=== PATIENT | female | born 1960 | race Caucasian/White ===

== ENCOUNTER 2016-11-02 12:02 | Emergency (ER) | payer OTHER ==
[~2016-11-02] VITALS: Ht 162.6 cm; Wt 55.3 kg
[~2016-11-02 12:02] MED LIST: ALBU0.08 INH; ALBU1AER9 INH; LISI-729 PO; LORA-741 PO; MOME200A INH; MONT1TAB3 PO; ONDA8TAB7 PO; OXGN; PANT40TA PO; SPRIN/30 INH
[2016-11-02 12:14] VITALS: TEMP 37; Ht 162.6 cm; Wt 55.3 kg
[2016-11-02] MEDS ORDERED: SODIUM CHLORIDE 0.9% 1000ML 1,000 ML IV STA (12:56)
[2016-11-02] MEDS ORDERED: ONDANSETRON INJ 2 MG/ML 2 ML VIAL IV STA (12:56)
[2016-11-02 13:08] LABS: BASO % 0.6 %; BASO ABS # 0.04 K/uL (0-0.2); COMPLETE YES; EOS % 2.7 %; HEMATOCRIT 47.2 % (37-47); IG% 0.2 %; LYMPH % 16.3 %; LYMPH ABS # 1.08 K/uL (1.2-3.4); MEAN CELL VOLUME 90.9 fL (80-100); MEAN CORPUSCULAR HEMOGLOBIN 32.2 pg (25-34); MEAN CORPUSCULAR HGB CONC 35.4 g/dl (32-36); MEAN PLATELET VOLUME 9.6 fL (7.4-10.4); MONO % 13.6 %; NEUT % 66.6 %; PLATELET COUNT 266 K/uL (130-400); RED BLOOD COUNT 5.19 M/uL (4.2-5.4); WHITE BLOOD COUNT 6.62 K/uL (4.8-10.8)
--- NOTE | 2016-11-02 13:26 | EMERGENCY ROOM VISIT NOTE ---
History First contact with patient: 12:47 Chief Complaint: DEHYDRATION Stated Complaint: NEED IV- REFERRED BY DR Parisi Triage Summary: patient has been vomiting and nauseous for three days. went to PCP and was sent to ER for dehydration/ patient has been keeping small amounts of fluids down and still unable to eat much History of Present Illness The patient is a 55 year old female who presents to the Emergency Room with complaints of dehydration. The patient has had nausea, vomiting and diarrhea for 3 days. She states that her symptoms started on Saturday. The patient states that the vomiting has stopped. She states that the diarrhea is much better. She states that she still feels weak and dehydrated. She saw her family doctor today and was referred to the emergency department for IV fluids. The patient reports epigastric pain and rates her discomfort 2/10. She states that her grandchildren developed the same symptoms today. She denies any chest pain or trouble breathing. She denies any fevers. She denies urinary symptoms. Review of Systems A 10 system review of systems was completed with positives and pertinent negatives listed in the HPI. Past Medical/Surgical History Medical Problems: (1) ASTHMA, UNSPECIFIED, W (ACUTE) EXACERBATION (2) CHRONIC OBSTRUCTIVE ASTHMA, NOS Family History Diabetes mellitus FH: cancer FH: heart disease FH: lung disease Social History Smoking Status: Current Every Day Smoker Alcohol Use: occasionally Drug Use: none Marital Status: single Housing Status: lives alone Occupation Status: disabled Current/Historical Medications Scheduled Albuterol Sulfate (Proair Respiclick), 2 PUFF INH Q4H Home O2 Therapy (Oxygen), 2 LITERS NA HS Ipratropium-Albuterol (Duoneb), 1 TREATMENT INH Q4H Lisinopril (Zestril), 5 MG PO HS Mometasone Furoate-Formoterol (Dulera 200/5 Mcg), 1 PUFF INH BID Montelukast Sodium (Singulair), 10 MG PO HS Ondasetron Odt (Zofran Odt), 4 MG SL Q6H Pantoprazole (Protonix), 40 MG PO QAM Tiotropium [place] (Spiriva Handihaler), 1 CAP INH DAILY AFTERNOON Scheduled PRN Lorazepam (Ativan), 0.5 MG PO DAILY PRN for Anxiety Physical Exam Vital Signs Date Time Temp Pulse Resp B/P (MAP) Pulse Ox O2 Delivery O2 Flow Rate FiO2 11/02/16 14:54 68 15 141/79 96 11/02/16 12:40 110 20 151/91 96 Room Air 11/02/16 12:36 99 20 145/92 96 103 152/88 110 151/91 11/02/16 12:14 37.0 116 18 151/88 95 Room Air Physical Exam VITALS: Vitals are noted on the nurse's note and reviewed by myself. Vital signs stable. GENERAL: This is a 55-year-old female, in no acute distress, nondiaphoretic, well-developed well-nourished. SKIN: The skin was without rashes, erythema, edema, or bruising. There is no tenting of the skin. Capillary reflex less than 2 seconds. HEAD: Normocephalic atraumatic. EARS: The external ears are normal in appearance. EYES: Pupils equal round and reactive to light and accommodation. Conjunctivae without injection, sclerae without icterus. Extraocular movements intact. NOSE: Patent, turbinates without inflammation or discharge. No sinus tenderness. MOUTH: Mucous membranes moist. Tonsils are not enlarged. Pharynx without erythema or exudate. Uvula midline. Airway patent. Tongue does not deviate. NECK: Supple without nuchal rigidity. No JVD. HEART: Regular rate and rhythm without murmurs gallops or rubs. LUNGS: Clear to auscultation bilaterally without wheezes, rales or rhonchi. No retractions or accessory muscle use. ABDOMEN: Positive bowel sounds x 4. Soft, minimal epigastric tenderness, without masses or organomegaly. Cohen sign negative. MUSCULOSKELETAL: No muscle atrophy, erythema, or edema noted. Full range of motion in all extremities. No tenderness to palpation. Normal gait. Strength 5/5 throughout. NEURO: Patient was alert and oriented to person place and time. No focal neurological deficits. Medical Decision & Procedures Laboratory Results 11/02/16 12:45 Red Blood Count 5.19, Mean Corpuscular Volume 90.9, Mean Corpuscular Hemoglobin 32.2, Mean Corpuscular Hemoglobin Concent 35.4, Mean Platelet Volume 9.6, Neutrophils (%) (Auto) 66.6, Lymphocytes (%) (Auto) 16.3, Monocytes (%) (Auto) 13.6, Eosinophils (%) (Auto) 2.7, Basophils (%) (Auto) 0.6, Neutrophils # (Auto ) 4.41, Lymphocytes # (Auto) 1.08, Monocytes # (Auto) 0.90, Eosinophils # (Auto ) 0.18, Basophils # (Auto) 0.04 11/02/16 12:45 Test 11/02/16 12:45 11/02/16 13:20 White Blood Count 6.62 K/uL (4.8-10.8) Red Blood Count 5.19 M/uL (4.2-5.4) Hemoglobin 16.7 g/dL (12.0-16.0) Hematocrit 47.2 % (37-47) Mean Corpuscular Volume 90.9 fL (80-100) Mean Corpuscular Hemoglobin 32.2 pg (25-34) Mean Corpuscular Hemoglobin Concent 35.4 g/dl (32-36) Platelet Count 266 K/uL (130-400) Mean Platelet Volume 9.6 fL (7.4-10.4) Neutrophils (%) (Auto) 66.6 % Lymphocytes (%) (Auto) 16.3 % Monocytes (%) (Auto) 13.6 % Eosinophils (%) (Auto) 2.7 % Basophils (%) (Auto) 0.6 % Neutrophils # (Auto) 4.41 K/uL (1.4-6.5) Lymphocytes # (Auto) 1.08 K/uL (1.2-3.4) Monocytes # (Auto) 0.90 K/uL (0.11-0.59) Eosinophils # (Auto) 0.18 K/uL (0-0.5) Basophils # (Auto) 0.04 K/uL (0-0.2) RDW Standard Deviation 47.1 fL (36.4-46.3) RDW Coefficient of Variation 14.1 % (11.5-14.5) Immature Granulocyte % (Auto) 0.2 % Immature Granulocyte # (Auto) 0.01 K/uL (0.00-0.02) Anion Gap 5.0 mmol/L (3-11) Est Creatinine Clear Calc Drug Dose 78.1 ml/min Estimated GFR () 110.8 Estimated GFR (Non- 95.6 BUN/Creatinine Ratio 2.7 (10-20) Calcium Level 8.7 mg/dl (8.5-10.1) Magnesium Level 1.9 mg/dl (1.8-2.4) Total Bilirubin 0.3 mg/dl (0.2-1) Aspartate Amino Transf (AST/SGOT) 101 U/L (15-37) Alanine Aminotransferase (ALT/SGPT) 69 U/L (12-78) Alkaline Phosphatase 118 U/L (45-117) Total Creatine Kinase 77 U/L (26-192) Total Protein 6.9 gm/dl (6.4-8.2) Albumin 3.2 gm/dl (3.4-5.0) Globulin 3.7 gm/dl (2.5-4.0) Albumin/Globulin Ratio 0.9 (0.9-2) Lipase 137 U/L (73-393) Urine Color YELLOW Urine Appearance CLEAR (CLEAR) Urine pH 5.5 (4.5-7.5) Urine Specific [place] 1.010 (1.000-1.030) Urine Protein NEG (NEG) Urine Glucose (UA) NEG (NEG) Urine Ketones NEG (NEG) Urine Occult Blood NEG (NEG) Urine Nitrite NEG (NEG) Urine Bilirubin NEG (NEG) Urine Urobilinogen NEG (NEG) Urine Leukocyte Esterase NEG (NEG) Medications Administered Medications (Trade) Dose Ordered Sig/[place] Route Start Time Stop Time Status Last Admin Dose Admin Sodium Chloride 1,000 ml @ 999 mls/hr Q1H1M STAT IV 11/02/16 12:56 11/02/16 13:56 DC 11/02/16 13:00 999 MLS/HR Ondansetron HCl (Zofran Inj) 4 mg NOW STAT IV 11/02/16 12:56 11/02/16 12:58 DC 11/02/16 13:23 4 MG ED Course The patient was seen and examined. Previous visits were reviewed. The patient does not have a fever or leukocytosis. She does not have any significant electrolyte abnormality. Lipase is not elevated. Urinalysis was negative. The patient was hydrated with 1 L of normal saline solution She was given 4 mg IV Zofran The patient states that she was feeling significantly improved after the above treatment The patient presents with resolving nausea, vomiting and diarrhea. The patient' s symptoms are consistent with a viral gastroenteritis. Her grandchildren also developed the same symptoms. She does not have any significant abdominal tenderness on examination. She does have some mild epigastric discomfort that is worse with movement and may be related to the straining with emesis. The patient will be given a small prescription for Zofran. She should return to the ER immediately if any worsening symptoms. Otherwise, she should recheck with her family doctor next week if she is not improving The patient was also seen and examined by Dr. Rivas who agrees with the assessment and treatment plan. Medical Decision DIFFERENTIAL DIAGNOSIS: Hepatitis, cholecystitis, cholangitis, biliary colic, pancreatitis, pneumonia, subdiaphragmatic abscess, appendicitis, inguinal hernia , nephrolithiasis, inflammatory bowel disease, mesenteric adenitis, peptic ulcer disease, GERD, gastritis, pancreatitis, myocardial infarction, pericarditis, ruptured aortic aneurysm, appendicitis, gastroenteritis, bowel obstruction, splenic infarct, diverticulitis, mesenteric ischemia, metabolic, peritonitis, among others. Medication Reconcilliation Current Medication List: was personally reviewed by me Blood Pressure Screening Patient's blood pressure: Elevated blood pressure Blood pressure disposition: Elevated BP felt to be situational Impression Primary Impression: Nausea vomiting and diarrhea Departure Information Dispostion Home / Self-Care Condition GOOD Prescriptions Ondasetron Odt (ZOFRAN ODT) 4 Mg Tab 4 MG SL Q6H for Nausea, #10 TAB Prov: Malika Lobo PA-C 11/02/16 Referrals Gurmeet Ng M.D. (PCP) Patient Instructions ED Food Poison Or Gastroenteritis, [facility] Additional Instructions Zofran as prescribed, as needed for nausea Return if any worsening abdominal pain, fevers Recheck with your family doctor next week if symptoms have not resolved
[2016-11-02 13:29] LABS: BUN/CREATININE RATIO 2.7 (10-20); CALCIUM 8.7 mg/dl (8.5-10.1); CREATININE 0.72 mg/dl (0.60-1.20); MAGNESIUM 1.9 mg/dl (1.8-2.4); POTASSIUM 3.4 mmol/L (3.5-5.1)
[2016-11-02 13:32] LABS: ALB/GLOB RATIO 0.9 (0.9-2)
[2016-11-02 13:37] LABS: URINE APPEARANCE CLEAR (CLEAR); URINE BILIRUBIN NEG (NEG); URINE COLOR YELLOW; URINE NITRITE NEG (NEG); URINE PH 5.5 (4.5-7.5); UROBILINOGEN NEG (NEG); ZZUR CULT IF INDIC CLEAN CATCH NO
[2016-11-02 13:39] LABS: MANUAL MICROSCOPIC REQUIRED? NO; REVIEW REQ? NO
[2016-11-02] MEDS ORDERED: IPRASOL4 INH (13:44)
[2016-11-02] MEDS ORDERED: ALBU18002 INH (13:44)
[2016-11-02] MEDS ORDERED: ONDA4TAB10 SL (14:13)
--- NOTE | 2016-11-02 14:36 | EMERGENCY ROOM VISIT NOTE ---
ED Visit Note First contact with patient: 12:47 Staff note: I have reviewed the Patients chart and have discussed this case with my PA. I generally agree with the ED note and findings.
[2016-11-02 14:54] VITALS: BP 141/79; PULSE 68; O2SAT 96
== END 2016-11-02 14:50 | disposition home or self-care (01) ==
LOC: C.EDB 12:02 → C.EDC 14:50
DX: R11.2 Nausea with vomiting, unspecified (principal); R19.7 Diarrhea, unspecified; R10.13 Epigastric pain; J45.909 Unspecified asthma, uncomplicated; J44.9 Chronic obstructive pulmonary disease, unspecified; F17.200 Nicotine dependence, unspecified, uncomplicated; Z99.81 Dependence on supplemental oxygen; Z83.3 Family history of diabetes mellitus

== ENCOUNTER 2017-04-23 01:09 | Emergency (ER) | payer OTHER ==
[~2017-04-23] VITALS: Ht 162.6 cm; Wt 55.9 kg
[~2017-04-23 01:09] MED LIST changes: -ALBU0.08 INH; +ALBU18002 INH; -ALBU1AER9 INH; +IPRASOL4 INH; +LEVO1TAB33 PO; +ONDA4TAB10 SL; -ONDA8TAB7 PO; +OXYC-609 PO
[2017-04-23 01:19] VITALS: TEMP 36.8; Ht 162.6 cm; Wt 55.9 kg
[2017-04-23 01:20] VITALS: O2SAT 98
[2017-04-23] MEDS ORDERED: ALBUT/IPRATROP 3MG/0.5MG NEB 3 ML VIAL INH STA (01:28)
[2017-04-23] MEDS ORDERED: DEXAMETHASONE **PF** INJ 10 MG/ML VIAL IV ONE (01:30)
[2017-04-23 01:59] LABS: BASO % 0.4 %; BASO ABS # 0.05 K/uL (0-0.2); EOS % 0.3 %; EOS ABS # 0.04 K/uL (0-0.5); HEMATOCRIT 40.6 % (37-47); HEMOGLOBIN 14.7 g/dL (12.0-16.0); IG# 0.03 K/uL (0.00-0.02); LYMPH % 18.6 %; LYMPH ABS # 2.15 K/uL (1.2-3.4); MEAN CELL VOLUME 94.4 fL (80-100); MEAN CORPUSCULAR HEMOGLOBIN 34.2 pg (25-34); MEAN CORPUSCULAR HGB CONC 36.2 g/dl (32-36); MEAN PLATELET VOLUME 8.8 fL (7.4-10.4); MONO % 5.7 %; MONO ABS # 0.66 K/uL (0.11-0.59); NEUT % 74.7 %; NEUT ABS # 8.62 K/uL (1.4-6.5); PLATELET COUNT 299 K/uL (130-400); RED CELL DISTRIBUTION WIDTH CV 12.5 % (11.5-14.5); RED CELL DISTRIBUTION WIDTH SD 43.1 fL (36.4-46.3); WHITE BLOOD COUNT 11.55 K/uL (4.8-10.8)
[2017-04-23 02:18] LABS: ALBUMIN 3.6 gm/dl (3.4-5.0); ALT/SGPT 24 U/L (12-78); AST/SGOT 16 U/L (15-37); BLOOD UREA NITROGEN 5 mg/dl (7-18); CALCIUM 8.9 mg/dl (8.5-10.1); CARBON DIOXIDE 23 mmol/L (21-32); CREATININE 0.68 mg/dl (0.60-1.20); GLUCOSE 125 mg/dl (70-99); POTASSIUM 3.4 mmol/L (3.5-5.1); SODIUM 130 mmol/L (136-145)
[2017-04-23 02:20] LABS: ALKALINE PHOSPHATASE 77 U/L (45-117); TOTAL PROTEIN 7.1 gm/dl (6.4-8.2)
--- NOTE | 2017-04-23 04:03 | EMERGENCY ROOM VISIT NOTE ---
ED Visit Note First contact with patient: 01:20 I saw this patient in conjunction with Tri Gilmore PA-C. I agree with her decision making and treatment plan.
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
[2017-04-23] MEDS ORDERED: PRED50TA PO (05:15)
--- NOTE | 2017-04-23 06:46 | DIAGNOSTIC IMAGING REPORT ---
CHEST ONE VIEW PORTABLE CLINICAL HISTORY: CHEST PAIN dyspnea COMPARISON STUDY: 03/16/2017 FINDINGS: Mild chronic interstitial fibrotic change. No focal infiltrate. Diaphragms smooth. Upper lungs are clear. IMPRESSION: Chronic fibrotic change. No acute process. The above report was generated using voice recognition software. It may contain grammatical, syntax or spelling errors. Electronically signed by: García Walden M.D. 04/23/2017 6:44 AM Dictated Date/Time: 04/23/2017 6:44 AM
[2017-04-23 07:00] VITALS: BP 131/79; PULSE 99; O2SAT 98
== END 2017-04-23 07:01 | disposition home or self-care (01) ==
LOC: EDBD 01:09 → C.EDA 01:13
DX: T59.4X1A Toxic effect of chlorine gas, accidental (unintentional), initial encounter (principal); J68.0 Bronchitis and pneumonitis due to chemicals, gases, fumes and vapors; J45.909 Unspecified asthma, uncomplicated; J44.9 Chronic obstructive pulmonary disease, unspecified; F17.200 Nicotine dependence, unspecified, uncomplicated; Z79.899 Other long term (current) drug therapy; Z83.3 Family history of diabetes mellitus; Z80.9 Family history of malignant neoplasm, unspecified; Z82.49 Family history of ischemic heart disease and other diseases of the circulatory system

== ENCOUNTER 2017-06-29 16:03 | Emergency (ER) | payer OTHER ==
[~2017-06-29] VITALS: Ht 162.6 cm; Wt 53.9 kg
[~2017-06-29 16:03] MED LIST changes: -ONDA4TAB10 SL
[2017-06-29 16:06] VITALS: Ht 162.6 cm; Wt 53.9 kg
[2017-06-29] MEDS ORDERED: ACETAMINOPHEN 500 MG TAB PO STA (16:18)
[2017-06-29] MEDS ORDERED: KETOROLAC TROMETHAMINE 30 MG/ML VIAL IV STA (16:18)
[2017-06-29] MEDS ORDERED: SODIUM CHLORIDE 0.9% 1000ML 1,000 ML IV STA (16:18)
[2017-06-29] MEDS ORDERED: ONDANSETRON INJ 2 MG/ML 2 ML VIAL IV STA (16:18)
[2017-06-29] MEDS ORDERED: FAMOTIDINE 20MG/5ML IV PUSH IV STA (16:18)
--- NOTE | 2017-06-29 16:27 | EMERGENCY ROOM VISIT NOTE ---
History Report prepared by Fabiola: Sharon Santoro Under the Supervision of: Dr. Ryan Leggett M.D. First contact with patient: 16:11 Chief Complaint: ILLNESS Stated Complaint: SICK History of Present Illness The patient is a 56 year old female who presents to the Emergency Room with complaints of vomiting and diarrhea beginning 14 hours prior to arrival. The patient also reports having right upper quadrant/epigastric abdominal pain and the chills, but denies having fevers and urinary symptoms. The patient states that she called her PCP and was referred here. She rates her abdominal pain at a 1-2 out of 10. The patient states that she is unsure if the pain radiates to her back because she has chronic back pain. She states that she does not think that she ate anything unusual other than potato salad she made last night. She reports that she is on Protonix. She also states that she has COPD, but denies a history of diabetes. The patient reports a history of umbilical surgeries, but denies a history of an appendectomy or cholecystectomy. Source of History: patient Onset: 14 hours prior to arrival Position: other (global) Quality: other (vomiting and diarrhea ) Associated Symptoms: + chills, + abdominal pain (right upper quadrant), No fevers, No urinary symptoms Review of Systems See HPI for pertinent positives & negatives. A total of 10 systems reviewed and were otherwise negative. Past Medical & Surgical Medical Problems: (1) ASTHMA, UNSPECIFIED, W (ACUTE) EXACERBATION (2) CHRONIC OBSTRUCTIVE ASTHMA, NOS (3) COPD (chronic obstructive pulmonary disease) Family History Diabetes mellitus FH: cancer FH: heart disease FH: lung disease Social History Smoking Status: Current Every Day Smoker Alcohol Use: occasionally Drug Use: none Marital Status: single Housing Status: lives alone Occupation Status: disabled Current/Historical Medications Scheduled Home O2 Therapy (Oxygen), 2 LITERS NA HS Lisinopril (Zestril), 5 MG PO HS Mometasone Furoate-Formoterol (Dulera 200/5 Mcg), 1 PUFF INH BID Montelukast Sodium (Singulair), 10 MG PO HS Ondasetron Odt (Zofran Odt), 4 MG SL Q6H Pantoprazole (Protonix), 40 MG PO QAM Tiotropium [place] (Spiriva Handihaler), 1 CAP INH DAILY AFTERNOON Scheduled PRN Albuterol Sulfate (Proair Respiclick), 2 PUFF INH Q4H PRN for SOB/Wheezing Ipratropium-Albuterol (Duoneb), 1 TREATMENT INH Q4H PRN for SOB/Wheezing Lorazepam (Ativan), 0.5 MG PO DAILY PRN for Anxiety Oxycodone HCl (Oxycodone HCl), 5 MG PO Q4 PRN for Pain Allergies Coded Allergies: Chlorine (Verified Allergy, Intermediate, Rash, 06/29/17) Codeine (Verified Allergy, Intermediate, RASH,NAUSEA ND VOMITING, 06/29/17) [place] Oil (Verified Allergy, Unknown, CORN HUSK-CHEST TIGHTENS, 06/29/17) Dust (Verified Allergy, Unknown, DUST MITES-CHEST TIGHTENS, 06/29/17) Morphine (Verified Allergy, Unknown, HALLUCINATIONS, 06/29/17) Penicillins (Verified Allergy, Unknown, EDEMA FACE, LIPS AND TONGUE,SOB, ) Tramadol (Verified Allergy, Unknown, GI SYMPTOMS, 06/29/17) Varenicline (Verified Allergy, Unknown, HALLUCINATIONS, NIGHTMARES, ) Physical Exam Vital Signs Date Time Temp Pulse Resp B/P (MAP) Pulse Ox O2 Delivery O2 Flow Rate FiO2 06/29/17 18:54 36.5 93 18 142/86 95 06/29/17 17:12 95 18 142/86 95 Room Air 06/29/17 16:06 37.6 125 18 141/98 95 Room Air Physical Exam GENERAL: Patient is in no acute distress. HEENT: No acute trauma, normocephalic atraumatic, mucous membranes moist, no nasal congestion, no scleral icterus. NECK: No stridor, no adenopathy, no meningismus, trachea is midline. LUNGS: Decreased breath sounds bilaterally. Breath sounds equal. No respiratory distress, no wheezing. HEART: Tachycardic with a regular rhythm. No murmurs. ABDOMEN: Soft, mildly tender in the epigastrium, bowel sounds hyperactive, no hernias, no peritonitis. EXTREMITIES: No cyanosis or edema, full range of motion of all the joints without pain or difficulty, no signs for acute trauma. NEUROLOGIC: Oriented x 3, no acute motor or sensory deficits, no focal weakness. SKIN: No rash, no jaundice, no diaphoresis. Medical Decision & Procedures ER Provider Diagnostic Interpretation: Radiology results as stated below per my review and radiologist interpretation: ABDOMEN 2VIEW W/PA CHEST RTN CLINICAL HISTORY: ABDOMINAL PAIN/GI pain COMPARISON STUDY: 04/23/2017 FINDINGS: Mild chronic bibasilar interstitial change. Mid and upper lungs are clear. Bowel pattern is nonobstructive. No significant bowel distention. Stable postoperative changes consistent with laminectomy and fusion from L4 through S1. IMPRESSION: 1. Chronic basilar interstitial and/or fibrotic change. 2. No acute process of the chest. 3. Nonobstructive bowel pattern The above report was generated using voice recognition software. It may contain grammatical, syntax or spelling errors. Electronically signed by: García Walden M.D. 06/29/2017 5:14 PM Dictated Date/Time: 06/29/2017 5:13 PM Laboratory Results 06/29/17 16:37 Red Blood Count 4.64, Mean Corpuscular Volume 92.7, Mean Corpuscular Hemoglobin 33.4, Mean Corpuscular Hemoglobin Concent 36.0, Mean Platelet Volume 9.0, Neutrophils (%) (Auto) 83.4, Lymphocytes (%) (Auto) 7.8, Monocytes (%) (Auto) 6.5, Eosinophils (%) (Auto) 1.8, Basophils (%) (Auto) 0.3, Neutrophils # (Auto) 7.76, Lymphocytes # (Auto) 0.73, Monocytes # (Auto) 0.61, Eosinophils # (Auto) 0.17, Basophils # (Auto) 0.03 06/29/17 16:37 Test 06/29/17 16:37 White Blood Count 9.32 K/uL (4.8-10.8) Red Blood Count 4.64 M/uL (4.2-5.4) Hemoglobin 15.5 g/dL (12.0-16.0) Hematocrit 43.0 % (37-47) Mean Corpuscular Volume 92.7 fL (80-100) Mean Corpuscular Hemoglobin 33.4 pg (25-34) Mean Corpuscular Hemoglobin Concent 36.0 g/dl (32-36) Platelet Count 254 K/uL (130-400) Mean Platelet Volume 9.0 fL (7.4-10.4) Neutrophils (%) (Auto) 83.4 % Lymphocytes (%) (Auto) 7.8 % Monocytes (%) (Auto) 6.5 % Eosinophils (%) (Auto) 1.8 % Basophils (%) (Auto) 0.3 % Neutrophils # (Auto) 7.76 K/uL (1.4-6.5) Lymphocytes # (Auto) 0.73 K/uL (1.2-3.4) Monocytes # (Auto) 0.61 K/uL (0.11-0.59) Eosinophils # (Auto) 0.17 K/uL (0-0.5) Basophils # (Auto) 0.03 K/uL (0-0.2) RDW Standard Deviation 43.5 fL (36.4-46.3) RDW Coefficient of Variation 12.8 % (11.5-14.5) Immature Granulocyte % (Auto) 0.2 % Immature Granulocyte # (Auto) 0.02 K/uL (0.00-0.02) Anion Gap 8.0 mmol/L (3-11) Est Creatinine Clear Calc Drug Dose 80.5 ml/min Estimated GFR () 114.9 Estimated GFR (Non- 99.2 BUN/Creatinine Ratio 7.7 (10-20) Calcium Level 8.6 mg/dl (8.5-10.1) Total Bilirubin 0.9 mg/dl (0.2-1) Aspartate Amino Transf (AST/SGOT) 20 U/L (15-37) Alanine Aminotransferase (ALT/SGPT) 20 U/L (12-78) Alkaline Phosphatase 80 U/L (45-117) Total Protein 7.1 gm/dl (6.4-8.2) Albumin 3.5 gm/dl (3.4-5.0) Globulin 3.6 gm/dl (2.5-4.0) Albumin/Globulin Ratio 1.0 (0.9-2) Lipase 96 U/L (73-393) Laboratory results reviewed by me. Medications Administered Medications (Trade) Dose Ordered Sig/[place] Route Start Time Stop Time Status Last Admin Dose Admin Ondansetron HCl (Zofran Inj) 4 mg NOW STAT IV 06/29/17 16:18 06/29/17 16:21 DC 06/29/17 16:38 4 MG Sodium Chloride 1,000 ml @ 999 mls/hr Q1H1M STAT IV 06/29/17 16:18 06/29/17 17:18 DC 06/29/17 16:38 999 MLS/HR Ketorolac Tromethamine (Toradol Inj) 30 mg NOW STAT IV 06/29/17 16:18 06/29/17 16:21 DC 06/29/17 16:41 30 MG Acetaminophen (Tylenol Tab) 1,000 mg NOW STAT PO 06/29/17 16:18 06/29/17 16:21 DC 06/29/17 16:34 1,000 MG Famotidine (Pepcid 20mg Iv Push) 20 mg ONE STAT IV 06/29/17 16:18 06/29/17 16:21 DC 06/29/17 16:38 20 MG Sodium Chloride 500 ml @ 999 mls/hr Q31M STAT IV 06/29/17 17:20 06/29/17 17:50 DC 06/29/17 17:46 999 MLS/HR Ondansetron HCl (ZOFRAN ODT 4MG Home Pack) 1 homepack UD ONCE PO 06/29/17 18:00 06/29/17 18:05 DC 06/29/17 18:51 1 HOMEPACK ED Course 1615: The patient was evaluated in room B8. A complete history and physical exam was performed. 1618: Ordered Famotidine 20 mg IV, Tylenol Tab 1,000 mg PO, Toradol Inj 30 mg IV , Sodium Chloride 1,000 ml @ 999 mls/hr IV, Zofran Inj 4 mg IV. 1720: Ordered Sodium Chloride 500 ml @ 999 mls/hr IV. 1800: Ordered Ondansetron HCl 1 homepack PO. 1801: Reevaluated the patient. She is doing well. Discussed results and discharge instructions: She verbalized understanding and agreement. The patient is ready for discharge. Medical Decision The patient is a 56 year old female who presents to the ED with complaints of vomiting and diarrhea. Differential diagnoses considered include food-borne illness, viral illness, dehydration, electrolyte imbalance, pancreatitis, colitis, diverticulitis, biliary colic, and appendicitis. There is no leukocytosis or concerning anemia. No significant electrolyte abnormality, kidney failure, hepatitis or pancreatitis. Obstruction series does not show bowel obstruction, free air or pneumonia. On exam, there was no peritonitis. The patient received oral Tylenol, IV Zofran, IV Toradol and IV saline. She received IV Pepcid. The patient feels remarkably improved. Her fever has dissipated. Her heart rate is improved. She feels improved and she is tolerating oral intake. She is being discharged home. I suspect this illness is viral and/or foodborne, if worsening, she can return. Medication Reconcilliation Current Medication List: was personally reviewed by me Blood Pressure Screening Patient's blood pressure: Elevated blood pressure Blood pressure disposition: Elevated BP felt to be situational Impression Primary Impression: Nausea vomiting and diarrhea Additional Impression: Dehydration Scribe Attestation The scribe's documentation has been prepared under my direction and personally reviewed by me in its entirety. I confirm that the note above accurately reflects all work, treatment, procedures, and medical decision making performed by me. Departure Information Dispostion Home / Self-Care Prescriptions Ondasetron Odt (ZOFRAN ODT) 4 Mg Tab 4 MG SL Q6H for Nausea, #6 TAB Prov: Ryan Leggett M.D. 06/29/17 Referrals Gurmeet Ng M.D. (PCP) Forms HOME CARE DOCUMENTATION FORM, IMPORTANT VISIT INFORMATION, WORK / SCHOOL INSTRUCTIONS Patient Instructions My [facility] Additional Instructions tylenol for fever and chills and aches and pain zofran 1 tab every 6 hours for nausea as needed bland diet---crackers, soup, toast, gatorade, rice rest return if worsening or not improving as we discussed lab testing and imaging was all ok today Problem Qualifiers
[2017-06-29 17:00] LABS: BASO % 0.3 %; BASO ABS # 0.03 K/uL (0-0.2); EOS % 1.8 %; EOS ABS # 0.17 K/uL (0-0.5); HEMOGLOBIN 15.5 g/dL (12.0-16.0); IG# 0.02 K/uL (0.00-0.02); LYMPH % 7.8 %; LYMPH ABS # 0.73 K/uL (1.2-3.4); MEAN CELL VOLUME 92.7 fL (80-100); MEAN CORPUSCULAR HEMOGLOBIN 33.4 pg (25-34); MONO % 6.5 %; MONO ABS # 0.61 K/uL (0.11-0.59); NEUT % 83.4 %; NEUT ABS # 7.76 K/uL (1.4-6.5); PLATELET COUNT 254 K/uL (130-400); RED CELL DISTRIBUTION WIDTH CV 12.8 % (11.5-14.5); RED CELL DISTRIBUTION WIDTH SD 43.5 fL (36.4-46.3); WHITE BLOOD COUNT 9.32 K/uL (4.8-10.8)
--- NOTE | 2017-06-29 17:15 | DIAGNOSTIC IMAGING REPORT ---
ABDOMEN 2VIEW W/PA CHEST RTN CLINICAL HISTORY: ABDOMINAL PAIN/GI pain COMPARISON STUDY: 04/23/2017 FINDINGS: Mild chronic bibasilar interstitial change. Mid and upper lungs are clear. Bowel pattern is nonobstructive. No significant bowel distention. Stable postoperative changes consistent with laminectomy and fusion from L4 through S1. IMPRESSION: 1. Chronic basilar interstitial and/or fibrotic change. 2. No acute process of the chest. 3. Nonobstructive bowel pattern The above report was generated using voice recognition software. It may contain grammatical, syntax or spelling errors. Electronically signed by: García Walden M.D. 06/29/2017 5:14 PM Dictated Date/Time: 06/29/2017 5:13 PM
[2017-06-29 17:18] LABS: ALBUMIN 3.5 gm/dl (3.4-5.0); CALCIUM 8.6 mg/dl (8.5-10.1); CREATININE 0.68 mg/dl (0.60-1.20); POTASSIUM 3.6 mmol/L (3.5-5.1)
[2017-06-29 17:20] LABS: TOTAL PROTEIN 7.1 gm/dl (6.4-8.2)
[2017-06-29] MEDS ORDERED: SODIUM CHLORIDE 0.9% 500ML 500 ML IV STA (17:20)
[2017-06-29] MEDS ORDERED: ONDANSETRON HOME PACK 4MG OD TAB PO ONE (18:00)
[2017-06-29] MEDS ORDERED: ONDA4TAB10 SL (18:02)
[2017-06-29 18:54] VITALS: BP 142/86; PULSE 93; TEMP 36.5; O2SAT 95
== END 2017-06-29 18:55 | disposition home or self-care (01) ==
LOC: C.EDB 16:03
DX: R11.2 Nausea with vomiting, unspecified (principal); R19.7 Diarrhea, unspecified; E86.0 Dehydration; J45.909 Unspecified asthma, uncomplicated; J44.9 Chronic obstructive pulmonary disease, unspecified; Z83.3 Family history of diabetes mellitus; Z82.49 Family history of ischemic heart disease and other diseases of the circulatory system; F17.200 Nicotine dependence, unspecified, uncomplicated; Z88.0 Allergy status to penicillin; Z88.8 Allergy status to other drugs, medicaments and biological substances; Z88.5 Allergy status to narcotic agent

== ENCOUNTER 2020-12-06 01:28 | Observation (INO) ==
[2020-12-06] MEDS ORDERED: dexAMETHasone**PF** 10 MG/ML VIAL IV ONE (01:45)
[2020-12-06] MEDS ORDERED: ALBUT/IPRATROP 3MG/0.5MG NEB 3 ML VIAL NEB STA (01:45)
[2020-12-06] MEDS ORDERED: ALBUT/IPRATROP 3MG/0.5MG NEB 3 ML VIAL ONE (01:46)
[2020-12-06] MEDS ORDERED: NICOTINE 21 MG/24 HR TDSY TD STA (01:52)
--- NOTE | 2020-12-06 01:55 | Emergency Department Note ---
History of Present Illness General Chief complaint: Shortness of Breath/Dyspnea Stated complaint: SHORT OF BREATH Time Seen by Provider: 12/06/20 01:34 History of Present Illness This 60-year-old with COPD continues to smoke and drink alcohol presents to the ER complaining of cough shortness of breath feeling like a COPD flare Location: Chest Quality: Hard to breathe Severity: Moderate Duration: Past few days Timing: Started few days ago Context: Symptoms got worse and patient came in Modifying factors: better with rest; worse with activity Patient denies chest pain, fevers, abdominal pain, flulike illness. She has not received the Covid vaccine. Home Medications Medication Instructions Recorded Confirmed Type pantoprazole 40 mg tablet,delayed 40 mg PO DAILYBB 03/02/18 10/13/19 History release multivitamin with minerals 1 tab PO DAILY 04/06/18 10/13/19 History albuterol sulfate 90 mcg/actuation 2 puff INHALATION Q4H PRN 06/09/18 10/13/19 History aerosol inhaler epinephrine 0.3 mg/0.3 mL 0.3 mg IM DIRECTED PRN 06/09/18 10/13/19 History injection, auto-injector cetirizine 10 mg tablet 10 mg PO DAILY 09/15/18 10/13/19 History fluticasone furoate 200 1 inh INHALATION DAILY 10/13/19 10/13/19 History mcg-vilanterol 25 mcg/dose inhalation powder (Breo Ellipta) fluticasone propionate 50 2 spray INTRANASAL DAILY 10/13/19 10/13/19 History mcg/actuation nasal spray,suspension (Flonase Allergy Relief) oxycodone 5 mg tablet 5 mg PO Q4 PRN 10/13/19 10/13/19 History propranolol 10 mg tablet 10 mg PO BID 10/13/19 10/13/19 History tiotropium bromide 18 mcg capsule 1 cap INHALATION DAILY 10/13/19 10/13/19 History with inhalation device (Spiriva with HandiHaler) oxycodone 5 mg tablet (Roxicodone) 5 mg PO Q6H PRN #12 tab 04/01/20 Rx prednisone 20 mg tablet 60 mg PO DAILY 4 Days #12 tab 12/06/20 Rx Allergies Allergy/AdvReac Type Severity Reaction Status Date / Time Penicillins Allergy Severe Swelling Verified 10/13/19 22:33 of Lip/Tongue/face edema/sob codeine Allergy Intermediate RASH,NAUSEA Verified 10/13/19 22:33 ND VOMITING house dust mite Allergy Intermediate Chest Verified 10/13/19 22:33 tightens lisinopril Allergy Intermediate Swelling Verified 10/13/19 22:33 of face morphine AdvReac Intermediate HALLUCINATI Verified 10/13/19 22:33 ONS varenicline AdvReac Intermediate HALLUCINATIONS, Verified 10/13/19 22:33 NIGHTMARES tramadol AdvReac Mild GI SYMPTOMS Verified 10/13/19 22:33 mold AdvReac Unknown Unknown Verified 10/13/19 22:33 Chlorine Allergy Severe RESPIRATORY Uncoded 10/13/19 22:33 DISTRESS Past Med/Surg History Medical History COPD exacerbation Cough Medication reaction Pneumonia Sepsis Sinus infection Thrush Surgical History No pertinent past surgical history Family History Other No significant family history Social History Smoking Status: Current every day smoker Second Hand Exposure: Yes; Hx Alcohol Use: Yes Alcohol type: beer Hx Substance Use: No Preferred Language: American Communication Ability: Effective Visual Impairment: No Limitations Hearing Ability: Normal Uc Architect Required: Yes Beliefs That Will Affect Care: None Feels Safe at Home: Yes Assistive Devices: None and Denture - Upper Review of Systems A total of 10 systems reviewed and were otherwise negative Physical Exam Vital Signs Vital Signs - 24 hr 12/06/20 01:52 12/06/20 01:56 12/06/20 02:00 Temperature 36.6 C Temperature Source Oral Pulse Rate 104 H 97 H Pulse Rate [Finger] 91 H Pulse Rate from SpO2 Sensor 97 H Respiratory Rate 18 20 19 Respiratory Effort / Characteristics Non-Labored Spontaneous Blood Pressure 187/99 H 160/98 H Blood Pressure Mean 128 118 Pulse Oximetry 96 96 98 Oxygen Delivery Method Nasal Cannula Nasal Cannula Oxygen Flow Rate 4 3 Sepsis Recent Fever Within 48 Hours No Sepsis New/Unexplained Change in Mental Status N/A Sepsis Action Taken by Nursing No Action Required 12/06/20 02:30 12/06/20 03:00 Temperature Temperature Source Pulse Rate 93 H 89 Pulse Rate [Finger] Pulse Rate from SpO2 Sensor 92 H 89 Respiratory Rate Respiratory Effort / Characteristics Blood Pressure 140/98 145/97 H Blood Pressure Mean 112 113 Pulse Oximetry 91 96 Oxygen Delivery Method Oxygen Flow Rate Sepsis Recent Fever Within 48 Hours Sepsis New/Unexplained Change in Mental Status Sepsis Action Taken by Nursing VITALS: Vitals are noted on the nurse's note and reviewed by myself. Vital signs reviewed GENERAL: White female with tobacco and alcohol odor with audible wheeze, in no acute distress, nondiaphoretic, well-developed well-nourished. SKIN: The skin was without rashes, erythema, edema, or bruising. There is no tenting of the skin. Capillary reflex less than 2 seconds. HEAD: Normocephalic atraumatic. EARS: External auditory canals clear, EYES: Pupils equal round and reactive to light and accommodation. Conjunctivae without injection, sclerae without icterus. Extraocular movements intact. NOSE: Patent, turbinates without inflammation or discharge. MOUTH: Mucous membranes moist. Pharynx without erythema or exudate. Uvula midline. Airway patent. Tongue does not deviate. NECK: Supple without nuchal rigidity. No lymphadenopathy. No thyromegaly. Cervical spine is nontender. No JVD. HEART: Regular rate and rhythm LUNGS: Diffuse inspiratory and end expiratory wheezes, rales or rhonchi. No retractions or accessory muscle use. ABDOMEN: Positive bowel sounds x 4. Normal tympanic percussion. Soft, nontender, without masses or organomegaly. Cohen sign negative. No guarding or rebound tenderness. No CVA tenderness MUSCULOSKELETAL: No muscle atrophy, erythema, or edema noted. NEURO: Patient was alert and oriented to person place and time. Normal sensation to light and sharp touch. No focal neurological deficits. Course Administered Medications Discontinued Medications Albuterol (Albut/Ipratrop 3mg/0.5mg Neb 3 Ml Vial) 3 ml NEB NOW STA Stop: 12/06/20 01:46 Last Admin: 12/06/20 01:55 Dose: 3 ml Documented by: [id number] Dexamethasone Sodium Phosphate (DexamethasonePf 10 Mg/Ml Vial) 10 mg IV NOW ONE Stop: 12/06/20 01:46 Last Admin: 12/06/20 01:57 Dose: 10 mg Documented by: [id number] Nicotine (Nicotine 21 Mg/24 Hr Tdsy) 21 mg TD NOW STA Stop: 12/06/20 01:53 Last Admin: 12/06/20 01:57 Dose: 21 mg Documented by: [id number] Medical Decision Making Medical Records Attestation: I reviewed the patient's medical records. Home Medications Current Medication List: was personally reviewed by me Laboratory Data Attestation: I reviewed the patient's lab results. Result diagrams: 12/06/20 01:45 12/06/20 01:45 Lab Results 12/06/20 12/06/20 12/06/20 Range/Units 01:45 01:45 01:52 WBC 9.89 (4.8-10.8) K/uL RBC 4.52 (4.2-5.4) M/uL Hgb 14.9 (12.0-16.0) g/dL Hct 41.4 (37-47) % MCV 91.6 (80-100) fL MCH 33.0 (25-34) pg MCHC 36.0 (32-36) g/dL RDW Std Deviation 42.4 (36.4-46.3) fL RDW Coeff of Daniel 12.8 (11.5-14.5) % Plt Count 280 (130-400) K/uL MPV 8.9 (7.4-10.4) fL Immature Gran % (Auto) 0.2 % Neut % (Auto) 58.4 % Lymph % (Auto) 29.1 % Wells % (Auto) 8.4 % Eos % (Auto) 3.2 % Baso % (Auto) 0.7 % Neut # (Auto) 5.77 (1.4-6.5) K/uL Lymph # (Auto) 2.88 (1.2-3.4) K/uL Wells # (Auto) 0.83 H (0.11-0.59) K/uL Eos # (Auto) 0.32 (0-0.5) K/uL Baso # (Auto) 0.07 (0-0.2) K/uL Immature Gran # (Auto) 0.02 (0.00-0.02) K/uL Sodium 128 L (136-145) mmol/L Potassium 3.8 (3.5-5.1) mmol/L Chloride 96 L (98-107) mmol/L Carbon Dioxide 23 (21-32) mmol/L Anion Gap 9.0 (3-11) BUN 3 L (7-18) mg/dl Creatinine 0.58 L (0.6-1.2) mg/dl Est Cr Clr Drug Dosing Not Reportable Est GFR ( Amer) 117.8 ml/min Est GFR (Non-Af Amer) 101.6 ml/min BUN/Creatinine Ratio 5.2 L (10-20) Glucose 111 H (70-99) mg/dl Calcium 8.6 (8.5-10.1) mg/dl Magnesium 1.9 (1.8-2.4) mg/dl Total Bilirubin 0.3 (0.2-1) mg/dl AST 20 (15-37) U/L ALT 19 (12-78) U/L Alkaline Phosphatase 108 (45-117) U/L Troponin I < 0.015 (0-0.045) ng/ml NT-Pro-B Natriuret Pep 98 (0-900) pg/ml Total Protein 7.1 (6.4-8.2) gm/dl Albumin 3.6 (3.4-5.0) gm/dl Globulin 3.5 (2.5-4.0) gm/dl Albumin/Globulin Ratio 1.0 (0.9-2) Ethyl Alcohol mg/dL (0-3) mg/dl COVID-19 Eval Order Covid19 at [facility] SARS-CoV-2 (PCR) (Negative) 12/06/20 12/06/20 Range/Units 01:52 02:12 WBC (4.8-10.8) K/uL RBC (4.2-5.4) M/uL Hgb (12.0-16.0) g/dL Hct (37-47) % MCV (80-100) fL MCH (25-34) pg MCHC (32-36) g/dL RDW Std Deviation (36.4-46.3) fL RDW Coeff of Daniel (11.5-14.5) % Plt Count (130-400) K/uL MPV (7.4-10.4) fL Immature Gran % (Auto) % Neut % (Auto) % Lymph % (Auto) % Wells % (Auto) % Eos % (Auto) % Baso % (Auto) % Neut # (Auto) (1.4-6.5) K/uL Lymph # (Auto) (1.2-3.4) K/uL Wells # (Auto) (0.11-0.59) K/uL Eos # (Auto) (0-0.5) K/uL Baso # (Auto) (0-0.2) K/uL Immature Gran # (Auto) (0.00-0.02) K/uL Sodium (136-145) mmol/L Potassium (3.5-5.1) mmol/L Chloride (98-107) mmol/L Carbon Dioxide (21-32) mmol/L Anion Gap (3-11) BUN (7-18) mg/dl Creatinine (0.6-1.2) mg/dl Est Cr Clr Drug Dosing Est GFR ( Amer) ml/min Est GFR (Non-Af Amer) ml/min BUN/Creatinine Ratio (10-20) Glucose (70-99) mg/dl Calcium (8.5-10.1) mg/dl Magnesium (1.8-2.4) mg/dl Total Bilirubin (0.2-1) mg/dl AST (15-37) U/L ALT (12-78) U/L Alkaline Phosphatase (45-117) U/L Troponin I (0-0.045) ng/ml NT-Pro-B Natriuret Pep (0-900) pg/ml Total Protein (6.4-8.2) gm/dl Albumin (3.4-5.0) gm/dl Globulin (2.5-4.0) gm/dl Albumin/Globulin Ratio (0.9-2) Ethyl Alcohol mg/dL 227.0 H (0-3) mg/dl COVID-19 Eval Order SARS-CoV-2 (PCR) NEGATIVE (Negative) Imaging Data Attestation: I personally reviewed and interpreted this imaging study as follows: [facility] Narrative Prior records/ancillary studies reviewed. Triage Nursing notes reviewed. Additional history obtained from nursing The patient's history was concerning for respiratory difficulties. Differential diagnosis: Etiologies such as infections, reactive airway disease, pneumonia, pneumothorax, COPD, CHF, cardiac ischemia, pulmonary embolism, musculoskeletal, gastrointestinal, as well as others were entertained. Physical examination: As above. ER treatment provided: An order was placed for continuous cardiac monitoring. The monitor shows a rate of 60-100 with a sinus rhythm. IV fluids, Decadron, nebulizer On reassessment the patient felt better. Diagnostic interpretation by me: The electrocardiogram was negative for acute ischemic or pathologic change. Normal sinus, normal intervals, no acute ST-T wave changes. Impression normal sinus interpreted by myself EKG ordered for dyspnea I think arrhythmia is unlikely. EKG shows normal sinus rhythm with no interval abnormalities such as QT prolongation or WPW. There are no findings to suggest Brugada syndrome. Cardiac monitoring in the emergency department reveals no tachycardic or bradycardic dysrhythmia. Hypertrophic cardiomyopathy was considered but there are no clear historical elements pointing toward this. EKG is not suggestive. The QRS voltage is not extremely large and there are no suggestive Q waves. The labs revealed no leukocytosis, hyponatremia which is chronic for the patient. Elevated alcohol Imaging studies: Chest x-ray with emphysematous change without consolidation or pneumothorax or free air per my interpretation Consultation: A consultation was placed with the hospitalist. The case was discussed and diagnostics were reviewed. The patient was evaluated in the ER for further tr eatment. This appears to be consistent with COPD exacerbation. Patient was still short of breath. Medicine was consulted. She will be evaluated for admission.. By the evaluation outlined above emergent etiologies such as CHF, cardiac ischemia, pulmonary embolism, reactive airway disease, pneumothorax, musculoskeletal, serious bacterial infections, as well as others were deemed relatively unlikely. The pt informed about the findings as listed above. All questions were answered and pleased with the treatment. The chart was completed utilizing [employer] Speech voice recognition software. Grammatical errors, random word insertions, pronoun errors, and incomplete sentences are an occassional consequence of this system due to software limitations, ambient noise, and hardware issues. Any formal questions or concerns about the content, text, or information contained within the body of this dictation should be directly addressed to the physician family law legal assistant for clarification. Impression & Plan Acute exacerbation of chronic obstructive airways disease Discharge Plan Visit Data Chief Complaint: Shortness of Breath/Dyspnea Stated Complaint: SHORT OF BREATH ED Provider: Kath Ayers ED Midlevel Provider: Keila Gilmore Discharge Problem: Acute exacerbation of chronic obstructive airways disease Patient Disposition: Admitted As Inpatient Condition: Fair Discharge Instructions Krames/Other Patient Handouts: ED COPD Flare Forms Stand Alone Forms: Virtual Emergency Department, Important Visit Information Prescriptions Prescriptions: New prednisone 20 mg tablet 60 mg PO DAILY 4 Days Qty: 12 RF: 0 No Action multivitamin with minerals Tablet 1 tab PO DAILY RF: 0 epinephrine 0.3 mg/0.3 mL auto-injector 0.3 mg IM DIRECTED PRN (Reason: Allergic Reaction) RF: 0 albuterol sulfate [Ventolin HFA] 90 mcg/actuation HFA aerosol inhaler 2 puff Inhalation Q4H PRN (Reason: Shortness Of Breath Or Wheezing) RF: 0 cetirizine 10 mg tablet 10 mg PO DAILY RF: 0 propranolol 10 mg Tablet 10 mg PO BID RF: 0 fluticasone propionate [Flonase Allergy Relief] 50 mcg/actuation [place],Suspension 2 spray INTRANASAL DAILY RF: 0 oxycodone 5 mg tablet 5 mg PO Q4 PRN (Reason: Pain) RF: 0 Spiriva with HandiHaler 18 mcg Capsule, W/Inhalation Device 1 cap INHALATION DAILY RF: 0 Breo Ellipta 200-25 mcg/dose Blister With Device 1 inh INHALATION DAILY RF: 0 oxycodone [Roxicodone] 5 mg tablet 5 mg PO Q6H PRN (Reason: pain) Qty: 12 RF: 0 pantoprazole 40 mg tablet,delayed release (DR/EC) 40 mg PO DAILYBB RF: 0 Referrals Referrals: Gurmeet Ng MD [Primary Care Provider] -
[2020-12-06 02:01] LABS: Basophils # (auto) 0.07 K/uL (0-0.2); Basophils % (auto) 0.7 %; Eosinophils # (auto) 0.32 K/uL (0-0.5); Eosinophils % (auto) 3.2 %; Hematocrit (blood only) 41.4 % (37-47); Hemoglobin 14.9 g/dL (12.0-16.0); Immature Granulocytes # (auto) 0.02 K/uL (0.00-0.02); Immature Granulocytes % (auto) 0.2 %; Lymphocytes # (auto) 2.88 K/uL (1.2-3.4); Lymphocytes % (auto) 29.1 %; Mean Corpuscular Volume 91.6 fL (80-100); Mean Platelet Volume 8.9 fL (7.4-10.4); Monocytes # (auto) 0.83 K/uL (0.11-0.59); Monocytes % (auto) 8.4 %; Neutrophils # (auto) 5.77 K/uL (1.4-6.5); Neutrophils % (auto) 58.4 %; Platelet Count 280 K/uL (130-400); RDW Coefficient of Variation 12.8 % (11.5-14.5); RDW Standard Deviation 42.4 fL (36.4-46.3); Red Blood Count 4.52 M/uL (4.2-5.4); White Blood Count 9.89 K/uL (4.8-10.8)
--- NOTE | 2020-12-06 02:01 | Emergency Department Note ---
ED Visit Note I saw this patient in conjunction with Tri Gilmore PA-C. Patient is currently receiving a nebulizer treatment and states that she is feeling much better. She believes that she got a respiratory infection that was exacerbated by the heat. I agree with her decision making and treatment plan. .
[2020-12-06 02:32] LABS: Alanine Aminotransferase 19 U/L (12-78); Albumin Level 3.6 gm/dl (3.4-5.0); Aspartate Aminotransferase 20 U/L (15-37); BUN Creatinine Ratio 5.2 (10-20); Blood Urea Nitrogen 3 mg/dl (7-18); Calcium 8.6 mg/dl (8.5-10.1); Carbon Dioxide 23 mmol/L (21-32); Chloride 96 mmol/L (98-107); Est GFR (African American) 117.8 ml/min; Est GFR (Non-African American) 101.6 ml/min; Glucose 111 mg/dl (70-99); Magnesium 1.9 mg/dl (1.8-2.4); Potassium 3.8 mmol/L (3.5-5.1); Sodium 128 mmol/L (136-145)
[2020-12-06 02:37] LABS: Alkaline Phosphatase 108 U/L (45-117); Bilirubin,Total 0.3 mg/dl (0.2-1); Globulin 3.5 gm/dl (2.5-4.0); NT Pro B Type Natriuretic Pept 98 pg/ml (0-900); Total Protein 7.1 gm/dl (6.4-8.2); Troponin I < 0.015 ng/ml (0-0.045)
[2020-12-06] MEDS ORDERED: SODIUM CHLORIDE 0.9% 1000ML 1,000 ML IV ONE (03:16)
[2020-12-06] MEDS ORDERED: ACETAMINOPHEN 325 MG TAB PO PRN (06:35)
[2020-12-06] MEDS ORDERED: LORazepam 3 MG/6 ML VIAL IV PRN (06:35)
[2020-12-06] MEDS ORDERED: POLYETHYLENE (MIRALAX) 17 GM PACK PO PRN (06:35)
[2020-12-06] MEDS ORDERED: GABAPENTIN 1200MG ALCOHOL WITHDRAWAL LOAD PO STA (06:35)
[2020-12-06] MEDS ORDERED: ONDANSETRON INJ 2 MG/ML 2 ML VIAL IV PRN (06:35)
[2020-12-06] MEDS ORDERED: LORazepam 2 MG/4 ML VIAL IV PRN (06:35)
[2020-12-06] MEDS ORDERED: ATIVAN IV ALCOHOL WITHDRAWL IV PRN (06:35)
[2020-12-06] MEDS ORDERED: LORazepam 1 MG/2 ML VIAL IV PRN (06:35)
[2020-12-06] MEDS ORDERED: NITROGLYCERIN SL 0.4 MG/TAB TAB SL PRN (06:35)
[2020-12-06] MEDS ORDERED: GABAPENTIN 600 MG TAB PO ONE (06:45)
[2020-12-06] MEDS ORDERED: XOPENEX/ATROVENT 1.25mg/0.5MG NEB COMBO NEB SCH (07:00)
--- NOTE | 2020-12-06 07:18 | XRay Report ---
SINGLE VIEW CHEST CLINICAL HISTORY: Dyspnea. FINDINGS: An AP, portable, upright chest radiograph is compared to study dated 03/06/2018 and correla lorenza with chest CT dated 06/05/2018. The cardiomediastinal silhouette is unremarkable. Enlargement of t he central pulmonary arteries suggests pulmonary artery hypertension. Advanced emphysema and chronic interstitial thickening is similar to previous. Dependent airspace opacities are seen at the lung bas es. No pneumothorax is seen. The skeletal structures are osteopenic. The bony thorax is grossly intac t. Fusion hardware is noted in the lower cervical spine. IMPRESSION: 1. Advanced emphysema. 2. Bibasilar airspace opacities likely represent scarring/atelectasis. Correlate clinically for evide nce of a superimposed infectious/inflammatory pneumonitis. ACT 112: Negative or not required by law. Electronically signed by: Ryan Solis M.D. 12/06/2020 7:17 AM
--- NOTE | 2020-12-06 07:28 | History and Physical Report ---
DATE OF ADMISSION: 12/06/2020. CHIEF COMPLAINT: Shortness of breath. HISTORY OF PRESENT ILLNESS: This is a 60-year-old female with past medical history significant for COPD, chronic pansinusitis, mixed rhinitis, palpitation, history of sciatica, alcohol abuse, positional vertigo, panic attacks, history of tobacco use disorder, presents with shortness of breath of 1 day duration. The patient says yesterday was very hot and whenever she is hot she could not cough up and she suddenly felt short of breath. She could not get deep breath and this worried her and she came to the ER. She uses oxygen 2 liters only in the nighttime. In the ER, she was saturating fine on 2 liters. Hemodynamically stable. Her sodium is 128.. She still drinks six beers of alcohol daily and smokes 10-15 cigarettes daily. She lives alone. Denies any headache, no dizziness, no blurred visions, no earache, no runny nose, no sore throat, no nausea, no chest pain, no abdominal pain. Normal bowel and bladder movements. She has a brace to the right knee. She says she has torn meniscus, but she is ambulating okay. ALLERGIES: PENICILLINS, CODEINE, HOUSE DUST MITE, LISINOPRIL, MORPHINE, VARENICLINE, TRAMADOL, MOLD, CHLORINE. PAST MEDICAL HISTORY: As mentioned above. PAST SURGICAL HISTORY: Cataract surgery, dental surgery, EGDs, back surgery, neck surgery, right ankle ORIF, repair of inguinal hernia, sinus surgery, umbilical hernia repair. MEDICATIONS: The patient is on Breo Ellipta 1 puff inhalation daily, propranolol 10 mg p.o. b.i.d., Spiriva 18 mcg p.o. inhalation daily, lorazepam 0.5 mg p.o. t.i.d. p.r.n., aspirin 81 mg p.o. daily, cetirizine 10 mg p.o. daily, albuterol nebulization every 4 hours p.r.n., Protonix 40 mg p.o. daily, albuterol sulfate 2 puffs every 4 hours p.r.n., Flonase 2 sprays into each nostril daily, oxycodone 5 mg p.o. q. 4 hours p.r.n., Zofran 4 mg p.o. t.i.d. p.r.n., vitamins with minerals 1 capsule daily, oxygen 2 liters at bedtime, Singulair 10 mg p.o. at bedtime. FAMILY HISTORY: Significant for son has testicular cancer. SOCIAL HISTORY: , lives alone. Smokes 1/2 pack to 3/4 pack a day for last 44 years. Alcohol, drinks six beers every day. Smokes marijuana as per Epic. REVIEW OF SYSTEMS: As per HPI. Rest of review of systems is negative. PHYSICAL EXAMINATION: GENERAL: The patient is thin and frail, not in acute distress. VITAL SIGNS: Temperature 36.6, pulse 105, respiratory rate 18, blood pressure 127/77, oxygen 98% on 2 liters. HEENT: Pupils equal, round and reactive to light. Oral mucosa moist. NECK: No JVD, no neck masses. CARDIOVASCULAR: S1 and S2 heard. Regular rate and rhythm. No murmur, no gallop. RESPIRATORY SYSTEM: Normal AP diameter. No accessory muscle use. No wheezes, no crackles. Bilateral diminished breath sounds. ABDOMEN: Soft, bowel sounds present, nontender, no distention. CENTRAL NERVOUS SYSTEM: Cranial nerves II through XII grossly intact, nonfocal. EXTREMITIES: No edema, no erythema . LABORATORY DATA: WBC 9.8, hemoglobin 14.9, hematocrit 41.4, platelets 280. Sodium 128, potassium 3.8, chloride 96, bicarbonate 23, BUN 3, creatinine 0.5, serum glucose 111, calcium 8.6, magnesium 1.9, total bilirubin 0.3, AST 20, ALT 19, alkaline phosphatase 108. Troponin I less than 0.015. BNP 98. Ethyl alcohol 227. SARS-CoV-2 PCR negative. IMAGING DATA: Chest x-ray, no acute findings. EKG: Normal sinus rhythm at a rate of 87, no significant change was found. ASSESSMENT AND PLAN: This is a 60-year-old female with history of chronic obstructive pulmonary disease, who presents with shortness of breath. 1. Chronic obstructive pulmonary disease: Mild chronic obstructive pulmonary disease exacerbation. Has bilateral diminished breath sounds. Saturating okay on 2 liters. The patient is on oxygen 2 liters while sleeping at home, but felt short of breath today. Currently feeling better and wants to go home as soon as possible. Will place on IV Solu-Medrol 40 b.i.d., nebs around the clock, continue home inhalers and monitor in the med tele. 2. Hyponatremia: Seems to be chronic. Symptoms could be from alcoholism. The patient received some fluids in the ER. Will follow the repeat labs around 1:00 a.m. Will follow urine osmolality, serum osmolality, and urine sodium levels. 3. Alcoholism: Drinks 6 beers every day. She says when she had ankle surgery, she did not drink and she did not have any withdrawal symptoms, but we will place her on gabapentin protocol with IV Ativan p.r.n. and IV thiamine, IV folic acid. 4. History of panic attacks: On Ativan p.r.n. 5. History of tobacco abuse: Nicotine patch. 6. Gastroesophageal reflux disease: Protonix. 7. Deep venous thrombosis prophylaxis: Sequential compression devices for now. DISPOSITION: Admit to med [facility]. Expect to discharge home and follow up with family doctor. Job ID: [id number]
[2020-12-06] MEDS: IPRATROPIUM BROMIDE NEB SOLN 0.02% 2.5 ML VIAL INH SCH ×3 (07:37→19:58)
[2020-12-06] MEDS: LEVALBUTEROL 1.25MG/0.5ML NEB INH SCH ×3 (07:37→19:58)
[2020-12-06] MEDS: methylPREDNISolone 40 MG in SYRINGE 0 ML IV SCH (08:10)
[2020-12-06] MEDS: THIAMINE HCL 100 MG in SYRINGE 9 ML IV SCH (08:11)
[2020-12-06] MEDS: FOLIC ACID 1 MG in SYRINGE 9.8 ML IV SCH (08:11)
[2020-12-06] MEDS: NICOTINE 21 MG/24 HR TDSY TD SCH ×2 (08:12→16:02)
[2020-12-06] MEDS ORDERED: oxyCODONE HCL IR 5 MG TAB (IMMEDIATE RELEASE) PO PRN (10:35)
[2020-12-06] MEDS ORDERED: ALBUTEROL HFA 8 GM INHALER INH PRN (10:36)
[2020-12-06 11:27] LABS: Appearance Urine Clear (Clear); Bilirubin Urine Negative (Negative); Blood Urine Negative (Negative); Color Urine Yellow; Glucose Urine UA 1+ (Negative); Ketones Urine Negative (Negative); Leukocyte Esterase Urine Negative (Negative); Nitrite Urine Negative (Negative); Protein Urine Negative (Negative); Specific Gravity Urine 1.006 (1.000-1.030); Urobilinogen Urine Negative (Negative); pH Urine 5.5 (4.5-7.5)
[2020-12-06] MEDS: ASPIRIN 81 MG ECTAB PO SCH (12:16)
[2020-12-06] MEDS: PANTOprazole 40 MG TAB PO SCH (12:16)
[2020-12-06] MEDS: CETIRIZINE HCL 10 MG TABLET PO SCH (12:16)
[2020-12-06] MEDS: PROPRANOLOL HCL 10 MG TAB PO SCH ×2 (12:16→20:34)
[2020-12-06] MEDS: FLUTICASONE/VILANTEROL 200/25MCG 14 PUFFS/INHALER INH SCH (12:17)
[2020-12-06] MEDS: UMECLIDINIUM BROMIDE 62.5MCG/BLISTER 7 PUFFS/INHALER INH SCH (12:17)
[2020-12-06] MEDS: GABAPENTIN 600 MG TAB PO SCH ×2 (12:20→17:06)
[2020-12-06 14:01] LABS: BUN Creatinine Ratio 3.2 (10-20); Calcium 9.2 mg/dl (8.5-10.1); Creatinine Clr Calc Pharmacy 48.6 ml/min; Est GFR (African American) 64.8 ml/min; Est GFR (Non-African American) 55.9 ml/min; Potassium 4.3 mmol/L (3.5-5.1)
[2020-12-06] MEDS ORDERED: LORazepam 0.5 MG TAB PO PRN (14:11)
[2020-12-06] MEDS ORDERED: SODIUM CHLORIDE 0.9% 500 ML IV SCH (14:15)
[2020-12-06 23:34] LABS: BUN Creatinine Ratio 9.5 (10-20); Creatinine Clr Calc Pharmacy 59.5 ml/min; Est GFR (African American) 82.8 ml/min; Est GFR (Non-African American) 71.4 ml/min
[2020-12-07] MEDS: GABAPENTIN 600 MG TAB PO SCH ×2 (01:07→10:08)
[2020-12-07 06:00] LABS: Basophils # (auto) 0.02 K/uL (0-0.2); Basophils % (auto) 0.2 %; Eosinophils # (auto) 0.02 K/uL (0-0.5); Eosinophils % (auto) 0.2 %; Hemoglobin 14.4 g/dL (12.0-16.0); Immature Granulocytes # (auto) 0.02 K/uL (0.00-0.02); Immature Granulocytes % (auto) 0.2 %; Lymphocytes # (auto) 1.96 K/uL (1.2-3.4); Lymphocytes % (auto) 18.3 %; Mean Corpuscular Hemoglobin 32.6 pg (25-34); Mean Corpuscular Hgb Conc 35.1 g/dL (32-36); Mean Corpuscular Volume 92.8 fL (80-100); Monocytes # (auto) 1.04 K/uL (0.11-0.59); Monocytes % (auto) 9.7 %; Neutrophils # (auto) 7.65 K/uL (1.4-6.5); Neutrophils % (auto) 71.4 %; Platelet Count 283 K/uL (130-400); RDW Standard Deviation 43.8 fL (36.4-46.3); Red Blood Count 4.42 M/uL (4.2-5.4); White Blood Count 10.71 K/uL (4.8-10.8)
[2020-12-07 06:39] LABS: Calcium 9.3 mg/dl (8.5-10.1); Creatinine Clr Calc Pharmacy 72.5 ml/min; Est GFR (African American) 105.2 ml/min; Est GFR (Non-African American) 90.8 ml/min; Potassium 3.6 mmol/L (3.5-5.1)
[2020-12-07] MEDS: LEVALBUTEROL 1.25MG/0.5ML NEB INH SCH ×3 (07:40→13:26)
[2020-12-07] MEDS: IPRATROPIUM BROMIDE NEB SOLN 0.02% 2.5 ML VIAL INH SCH ×3 (07:40→13:26)
[2020-12-07] MEDS: PROPRANOLOL HCL 10 MG TAB PO SCH (08:37)
[2020-12-07] MEDS: PANTOprazole 40 MG TAB PO SCH (08:37)
[2020-12-07] MEDS: methylPREDNISolone 40 MG in SYRINGE 0 ML IV SCH (08:38)
[2020-12-07] MEDS: ASPIRIN 81 MG ECTAB PO SCH (08:38)
[2020-12-07] MEDS: CETIRIZINE HCL 10 MG TABLET PO SCH (08:38)
[2020-12-07] MEDS: THIAMINE HCL 100 MG in SYRINGE 9 ML IV SCH (08:39)
[2020-12-07] MEDS: NICOTINE 21 MG/24 HR TDSY TD SCH (08:39)
[2020-12-07] MEDS: FOLIC ACID 1 MG in SYRINGE 9.8 ML IV SCH (08:39)
[2020-12-07] MEDS: FLUTICASONE/VILANTEROL 200/25MCG 14 PUFFS/INHALER INH SCH (08:42)
[2020-12-07] MEDS: UMECLIDINIUM BROMIDE 62.5MCG/BLISTER 7 PUFFS/INHALER INH SCH (08:43)
[2020-12-07] MEDS ORDERED: CEROVITE ADV FORMULA TAB PO SCH (09:00)
[2020-12-07] MEDS ORDERED: FLUTICASONE PROPIONATE NA SPR 16 GM BTL SCH (09:00)
[2020-12-07] MEDS ORDERED: NON-FORMULARY MEDICATION (Aspirin 81 mg Capsule,Delayed Release(Dr/Ec)) PO SCH (09:00)
--- NOTE | 2020-12-07 16:14 | Discharge Summary ---
Date of Service December 07, 2020 Admission HPI Per Admitting Provider CHIEF COMPLAINT: Shortness of breath. HISTORY OF PRESENT ILLNESS: This is a 60-year-old female with past medical history significant for COPD, chronic pansinusitis, mixed rhinitis, palpitation, history of sciatica, alcohol abuse, positional vertigo, panic attacks, history of tobacco use disorder, presents with shortness of breath of 1 day duration. The patient says yesterday was very hot and whenever she is hot she could not cough up and she suddenly felt short of breath. She could not get deep breath and this worried her and she came to the ER. She uses oxygen 2 liters only in the nighttime. In the ER, she was saturating fine on 2 liters. Hemodynamically stable. Her sodium is 128.. She still drinks six beers of alcohol daily and smokes 10-15 cigarettes daily. She lives alone. Denies any headache, no dizziness, no blurred visions, no earache, no runny nose, no sore throat, no nausea, no chest pain, no abdominal pain. Normal bowel and bladder movements. She has a brace to the right knee. She says she has torn meniscus, but she is ambulating okay. Admission Exam Per Admitting Provider GENERAL: The patient is thin and frail, not in acute distress. VITAL SIGNS: Temperature 36.6, pulse 105, respiratory rate 18, blood pressure 127/77, oxygen 98% on 2 liters. HEENT: Pupils equal, round and reactive to light. Oral mucosa moist. NECK: No JVD, no neck masses. CARDIOVASCULAR: S1 and S2 heard. Regular rate and rhythm. No murmur, no gallop. RESPIRATORY SYSTEM: Normal AP diameter. No accessory muscle use. No wheezes, no crackles. Bilateral diminished breath sounds. ABDOMEN: Soft, bowel sounds present, nontender, no distention. CENTRAL NERVOUS SYSTEM: Cranial nerves II through XII grossly intact, nonfocal. EXTREMITIES: No edema, no erythema . Principal Diagnosis Chronic obstructive pulmonary disease Hyponatremia Alcoholism History of panic attacks: Tobacco abuse: Nicotine patch. Gastroesophageal reflux disease Discharge Exam General- No acute distress Head- atraumatic Eyes- PERRL, EOMI, ENT- oropharynx clear Neck- supple, no JVD Lungs- diminished BS Heart- regular rhythm; no murmur Abdomen- normal bowel sounds, soft, nontender Extremities- no calf tenderness Neuro- alert, oriented x 3; PERRL, EOMI; no facial palsy; no dysarthria Skin- warm & dry Discharge Data Allergies Allergy/AdvReac Type Severity Reaction Status Date / Time Penicillins Allergy Severe Swelling Verified 10/13/19 22:33 of Lip/Tongue/face edema/sob codeine Allergy Intermediate RASH,NAUSEA Verified 10/13/19 22:33 ND VOMITING house dust mite Allergy Intermediate Chest Verified 10/13/19 22:33 tightens lisinopril Allergy Intermediate Swelling Verified 10/13/19 22:33 of face morphine AdvReac Intermediate HALLUCINATI Verified 10/13/19 22:33 ONS varenicline AdvReac Intermediate HALLUCINATIONS, Verified 10/13/19 22:33 NIGHTMARES tramadol AdvReac Mild GI SYMPTOMS Verified 10/13/19 22:33 mold AdvReac Unknown Unknown Verified 10/13/19 22:33 Chlorine Allergy Severe RESPIRATORY Uncoded 10/13/19 22:33 DISTRESS Consultations 12/06/20 04:34 ED Decision to Admit Stat 12/06/20 04:43 ED Decision to Admit Stat Ordered Studies SINGLE VIEW CHEST CLINICAL HISTORY: Dyspnea. FINDINGS: An AP, portable, upright chest radiograph is compared to study dated 03/06/2018 and correlated with chest CT dated 06/05/2018. The cardiomediastinal silhouette is unremarkable. Enlargement of the central pulmonary arteries suggests pulmonary artery hypertension. Advanced emphysema and chronic interstitial thickening is similar to previous. Dependent airspace opacities are seen at the lung bases. No pneumothorax is seen. The skeletal structures are osteopenic. The bony thorax is grossly intact. Fusion hardware is noted in the lower cervical spine. IMPRESSION: 1. Advanced emphysema. 2. Bibasilar airspace opacities likely represent scarring/atelectasis. Correlate clinically for evidence of a superimposed infectious/inflammatory pneumonitis. ACT 112: Negative or not required by law. Electronically signed by: Ryan Solis M.D. 12/06/2020 7:17 AM Dictated: 12/06/20715Transcribed: 12/06/20715 Hospital Course (1) Cough: Possible related to COPD CXR showed Bibasilar airspace opacities likely represent scarring/atelectasis. Received IV solumedrol Continue oxygen supplement Pt is very anxious to go home Continue neb treatment and inhaler Clinically improves significantly Hyponatremia: Possible relatd to alcohol and poor intake Na 136 today Continue monitor BMP Stable Alcoholism Denies any history of alcoho withdrawal or DT Counseling on alcohol cessation Continue Alcohol withdrawal protocol with Ativan and gabapentin On folic acid and thiamine History of panic attacks: On Ativan p.r.n. History of tobacco abuse: Nicotine patch. Counseling tobacco cessation Gastroesophageal reflux disease: Protonix. Deep venous thrombosis prophylaxis: on SCDs Disposition Discharge home By CMS guidelines, a determination that the admission or continued stay is not medically necessary has been made by a member of the UR committee and a physician for this hospital stay, therefore a Code 44 will be completed and the Inpatient admission will be changed to outpatient. Total Time Total Time Spent Total Time Spent (In Minutes): 35 minutes Discharge Plan Discharge Items Patient Disposition: Home - Self-Care Reason For Visit: SOB Discharge Diagnosis: Chronic obstructive pulmonary disease Hyponatremia Alcoholism History of panic attacks: Tobacco abuse: Nicotine patch. Gastroesophageal reflux disease Condition on Discharge: Fair Activity: Resume your previous activity Non-emergency contact: Primary Care Provider Call non-emergency contact if: you have any medication questions Follow-up/Referrals: Gurmeet Ng MD [Primary Care Provider] - (Date & Time 12/13/2020 12:20 PM Provider Gurmeet Ng MD Department Family Practice [facility] ) Diet: Heart Healthy Addtl Attending Provider Instructions: Follow up with primary care provider Dr. Ng on 12/13/2020 at 12:20 PM Check BMP in 1 week to monitor your electrolytes Counseling on smoking and alcohol cessation Continue oxygen supplement at night Fall precaution Seek medical attention if your symptoms reoccurs Pending Studies at Discharge: No Stand-Alone Forms: [facility] VerticalResponse, Smoking Cessation Medications and DC Order Prescriptions: Continued multivitamin with minerals Tablet 1 tab PO DAILY RF: 0 epinephrine 0.3 mg/0.3 mL auto-injector 0.3 mg IM DIRECTED PRN (Reason: Allergic Reaction) RF: 0 albuterol sulfate 90 mcg/actuation HFA aerosol inhaler 2 puff Inhalation Q4H PRN (Reason: Shortness Of Breath Or Wheezing) RF: 0 cetirizine 10 mg tablet 10 mg PO DAILY RF: 0 propranolol 10 mg Tablet 10 mg PO BID RF: 0 fluticasone propionate [Flonase Allergy Relief] 50 mcg/actuation [place],Suspension 2 spray INTRANASAL DAILY RF: 0 oxycodone 5 mg tablet 5 mg PO Q4 PRN (Reason: Pain) RF: 0 Spiriva with HandiHaler 18 mcg Capsule, W/Inhalation Device 1 cap INHALATION DAILY RF: 0 Breo Ellipta 200-25 mcg/dose Blister With Device 1 inh INHALATION DAILY RF: 0 pantoprazole 40 mg tablet,delayed release (DR/EC) 40 mg PO DAILYBB RF: 0 aspirin 81 mg Capsule,Delayed Release(Dr/Ec) 81 mg PO DAILY RF: 0 Discharge Orders: Discharge Order (Routine); Ordered 12/07/20 Ordered By: Brian Beckett Admission Data Admit Date/Time: 12/06/20 05:48 Attending Provider: Brian Beckett Admit Provider: Shemar Lucia Primary Care Provider: Gurmeet Ng Other Providers: Shemar Lucia ; Dell Fernando Other Interventions: Discharge Summary Assessment (RN) Last Done: 12/07/20 16:29
[2020-12-08] MEDS ORDERED: GABAPENTIN 600 MG TAB PO SCH (06:00)
--- NOTE | 2020-12-09 08:01 | Communication Note ---
Date of Service: December 09, 2020 Code 44 attestation 57-year-old female with COPD and significant other medical conditions as mentioned in H&P was admitted with exacerbation of shortness of breath which improved subsequently following admission. The chart, imaging studies and labs reviewed. He was managed by the attending and was felt to be reasonably well to be discharged her to the hospital. By CMS guidelines, a determination that the admission or continued stay is not medically necessary has been made by a member of the UR committee and a physician for this hospital stay, therefore a Code 44 will be completed and the Inpatient admission will be changed to outpatient. Dr Lenore Almeida Member UR Committee
--- NOTE | 2020-12-09 15:13 | Electrocardiogram Report ---
Test Reason : Blood Pressure : / mmHG Vent. Rate : 087 BPM Atrial Rate : 087 BPM P-R Int : 122 ms QRS Dur : 086 ms QT Int : 372 ms P-R-T Axes : 042 044 053 degrees QTc Int : 447 ms Poor data quality, interpretation may be adversely affected Normal sinus rhythm Normal ECG When compared with ECG of 06-APR-2018 17:37, No significant change was found Confirmed by Chino Randolph ([id number]) on 12/09/2020 3:13:31 PM Referred By: REFERRED SELF Confirmed By:Chino Randolph
[2020-12-09] MEDS ORDERED: GABAPENTIN 600 MG TAB PO SCH (18:00)
== END 2020-12-07 16:30 | disposition home or self-care (01) | DRG 191 ==
LOC: ED 01:28 → INTOOBSV 05:48 → SUATTDRO 05:48 → 2N 05:48